=== PATIENT | female | born 1960 | race Caucasian/White ===

== ENCOUNTER 2018-07-19 12:03 | Outpatient (CLI) | payer MEDICARE, MEDICAID, SELFPAY ==
[2018-07-19 12:51] LABS: Abs Immature Grans 0.01 k/cumm (0.0-0.09); Absolute Basophil Count 0.03 k/cumm (0.0-0.2); Absolute Eosinophil Count 0.35 k/cumm (0.0-0.7); Absolute Lymphocyte Count 1.06 k/cumm (1.2-3.4); Absolute Monocyte Count 0.66 k/cumm (0.11-0.7); Absolute Neutrophil Count 4.11 k/cumm (1.2-6.7); Basophils % 0.5; Eosinophils % 5.6; HCT 42.2 % (36.0-46.0); HGB 14.6 g/dL (12.0-15.5); Immature Grans % 0.2; Mean Corp. HGB Concentration 34.6 g/dL (32.0-36.0); Mean Corpuscular Hemoglobin 36.6 pg (27.0-33.0); Mean Corpuscular Volume 105.8 fL (80-95); Mean Platelet Volume 10.1 fL (8.0-11.0); Monocytes % 10.6; Neutrophils % 66.1; Platelet Count 165 x1000/uL (130-400); RBC 3.99 m/cumm (4.00-5.20); RBC Distribution Width 14.2 % (11.7-14.6); White Blood Cell Count 6.22 k/cumm (4.4-10.8)
[2018-07-19 13:24] LABS: ALT 18 U/L (12-78); AST 25 U/L (15-37); Albumin 3.4 g/dL (3.4-5.0); Alkaline Phosphatase 121 U/L (46-116); Anion Gap 8.8 mmol/L (3-11); BUN 9 mg/dL (7-18); Bilirubin, Total 0.6 mg/dL (0.2-1.0); CO2 26.2 mmol/L (21.0-32.0); CREATININE 0.91 mg/dL (0.55-1.02); Calcium 8.8 mg/dL (8.5-10.1); Chloride 101 mmol/L (98-107); Cholesterol 187 mg/dL (50-200); Glucose 111 mg/dL (70-100); HDL Cholesterol 64 mg/dL (40-60); LDL CHOLESTEROL 113 mg/dL (<100); Potassium 3.9 mmol/L (3.5-5.1); Sodium 136 mmol/L (136-145); Total Protein 8.1 g/dL (6.4-8.2); Triglyceride 110 mg/dL (30-150)
[2018-07-20 15:36] LABS: CD3 81 % (62-87); CD4 42 % (35-63); CD8 36 % (10-35)
[2018-07-20 16:15] LABS: HIV-1 RNA Quantification <20 copies/mL (UNDECT)
[2018-07-21 13:41] LABS: TB Interpretation Negative (NEGAT)
== END 2018-07-19 12:04 ==
PROVIDERS: PCP Family Medicine; Visit Provider Nurse Practitioner Family
DX: B20 Human immunodeficiency virus [HIV] disease (principal); E55.9 Vitamin D deficiency, unspecified; Z92.21 Personal history of antineoplastic chemotherapy; Z85.3 Personal history of malignant neoplasm of breast; E78.5 Hyperlipidemia, unspecified; Z79.899 Other long term (current) drug therapy
CPT/HCPCS: 36415; 80053; 80061; 82306; 83721; 87536; 85025; 86359; 86360; 86480

== ENCOUNTER 2019-03-27 10:29 | Outpatient (CLI) | payer MEDICARE, SELFPAY ==
[2019-03-27 11:22] LABS: Abs Immature Grans 0.01 k/cumm (0.0-0.09); Absolute Basophil Count 0.03 k/cumm (0.0-0.2); Absolute Eosinophil Count 0.31 k/cumm (0.0-0.7); Absolute Lymphocyte Count 1.54 k/cumm (1.2-3.4); Absolute Monocyte Count 0.41 k/cumm (0.11-0.7); Absolute Neutrophil Count 3.11 k/cumm (1.2-6.7); Basophils % 0.6; Eosinophils % 5.7; HCT 35.6 % (36.0-46.0); HGB 11.6 g/dL (12.0-15.5); Immature Grans % 0.2; Lymphocytes % 28.5; Mean Corp. HGB Concentration 32.6 g/dL (32.0-36.0); Mean Corpuscular Hemoglobin 35.9 pg (27.0-33.0); Mean Corpuscular Volume 110.2 fL (80-95); Monocytes % 7.6; Neutrophils % 57.4; Platelet Count 186 x1000/uL (130-400); RBC 3.23 m/cumm (4.00-5.20); RBC Distribution Width 13.9 % (11.7-14.6); White Blood Cell Count 5.41 k/cumm (4.4-10.8)
[2019-03-27 11:48] LABS: ALT 22 U/L (12-78); AST 33 U/L (15-37); Albumin 3.3 g/dL (3.4-5.0); Alkaline Phosphatase 106 U/L (46-116); Anion Gap 10.4 mmol/L (3-11); BUN 12 mg/dL (7-18); Bilirubin, Total 0.2 mg/dL (0.2-1.0); CO2 28.6 mmol/L (21.0-32.0); CREATININE 0.78 mg/dL (0.55-1.02); Calcium 8.7 mg/dL (8.5-10.1); Chloride 101 mmol/L (98-107); Glucose 87 mg/dL (70-100); Potassium 4.1 mmol/L (3.5-5.1); Sodium 140 mmol/L (136-145); Total Protein 7.7 g/dL (6.4-8.2)
[2019-04-03 09:00] LABS: HIV-1 RNA Quantification <20 copies/mL (UNDECT)
== END 2019-03-27 10:49 ==
PROVIDERS: PCP Family Medicine; Visit Provider Nurse Practitioner Family
DX: B20 Human immunodeficiency virus [HIV] disease (principal); Z79.899 Other long term (current) drug therapy
CPT/HCPCS: 36415; 80053; 87536; 83036; 85025

== ENCOUNTER 2020-02-22 16:09 | Outpatient (REF) | payer MEDICARE, SELFPAY ==
[2020-02-25 18:57] LABS: SARS-CoV-2 RNA Undetected (Undetected); SARS-CoV-2 Specimen Source Nasopharynx
== END 2020-02-22 16:29 ==
LOC: NCHCN 16:09
PROVIDERS: PCP Family Medicine; Visit Provider Physician Assistant
DX: J06.9 Acute upper respiratory infection, unspecified (principal)
CPT/HCPCS: U0003

== ENCOUNTER → 2020-05-16 04:00 | Outpatient (CLI) | payer MEDICARE, SELFPAY ==
--- NOTE | 2020-05-16 | DI.RAD_ITS ---
EXAM: XR KNEE LT 3V AP,LAT,CUBA CLINICAL HISTORY: LT KNEE JOINT PAIN, M25.562 TECHNIQUE: COMPARISON: CR LEFT KNEE 3 VIEW COMPLETE from 04/11/2018 FINDINGS: Three views were obtained. There is severe narrowing of the medial tibiofemoral cartilaginous joint space with slight medial femoral subluxation on the tibia. There is subchondral sclerosis and flatte uche of the medial femoral condyle and medial tibial plateau. There are prominent marginal osteophyt es involving the medial tibiofemoral joint and the patellofemoral joint. Loose joint body may be pre sent posteriorly. IMPRESSION: Severe DJD medial tibiofemoral joint
== END ==
PROVIDERS: PCP Family Medicine; Visit Provider Nurse Practitioner
DX: M25.562 Pain in left knee (principal); M17.12 Unilateral primary osteoarthritis, left knee; M23.42 Loose body in knee, left knee
CPT/HCPCS: 73562

== ENCOUNTER → 2020-07-01 08:58 | Outpatient (BNVA) | payer MEDICARE, MEDICAID, SELFPAY | PROVIDERS: PCP Family Medicine; Referring Provider Family Medicine; Visit Provider Orthopaedic Surgery | DX: M17.12 Unilateral primary osteoarthritis, left knee (principal); M25.562 Pain in left knee | CPT/HCPCS: 20610; 99201; 99213; J1040 ==

== ENCOUNTER → 2020-08-12 09:11 | Outpatient (BNVA) | payer MEDICARE, MEDICAID, SELFPAY | PROVIDERS: PCP Family Medicine; Referring Provider Family Medicine; Visit Provider Orthopaedic Surgery | DX: M25.562 Pain in left knee (principal); M17.12 Unilateral primary osteoarthritis, left knee; M79.89 Other specified soft tissue disorders; Z98.890 Other specified postprocedural states | CPT/HCPCS: 99214 ==

== ENCOUNTER 2020-10-09 10:15 | Outpatient (CLI) | payer MEDICARE, SELFPAY ==
--- NOTE | 2020-10-09 10:00 | DI.RAD_ITS ---
EXAM: XR ANKLE RT COMPLETE CLINICAL HISTORY: pain, swelling. TECHNIQUE: 2D digital imaging was performed. COMPARISON: CR RIGHT ANKLE COMPLETE from 12/08/2017 FINDINGS: BONES: There are stable post operative changes present. No new fracture or dislocation. The orthoped ic hardware appears stable. JOINTS: The joint spaces are well maintained. No joint effusion is present. SOFT TISSUE: Normal. IMPRESSION: Stable postoperative changes. DATA REPOSITORY: RADIATION DOSE DELIVERED:
== END 2020-10-09 10:35 ==
PROVIDERS: PCP Family Medicine; Referring Provider Family Medicine; Visit Provider Orthopaedic Surgery
DX: M25.571 Pain in right ankle and joints of right foot (principal); T84.84XD Pain due to internal orthopedic prosthetic devices, implants and grafts, subsequent encounter; Z87.81 Personal history of (healed) traumatic fracture
CPT/HCPCS: 99213; 99214; 73610

== ENCOUNTER 2020-10-15 02:09 | Outpatient (CLI) | payer MEDICARE, SELFPAY ==
[2020-10-16 15:22] LABS: SARS-CoV-2 RNA Not Detected (NotDetected); SARS-CoV-2 RNA Source Nasal/Nares
== END 2020-10-15 02:29 ==
PROVIDERS: PCP Nurse Practitioner; Visit Provider Orthopaedic Surgery
DX: Z11.59 Encounter for screening for other viral diseases (principal); Z01.818 Encounter for other preprocedural examination
CPT/HCPCS: U0003

== ENCOUNTER 2020-10-23 02:37 | Outpatient (CLI) | payer MEDICARE, SELFPAY ==
[2020-10-25 16:34] LABS: COVID-19 RT-PCR Result NEGATIVE (Negative)
== END 2020-10-23 02:57 ==
PROVIDERS: PCP Nurse Practitioner; Visit Provider Orthopaedic Surgery
DX: Z11.59 Encounter for screening for other viral diseases (principal); Z01.818 Encounter for other preprocedural examination
CPT/HCPCS: U0003

== ENCOUNTER 2020-10-27 06:16 | Day surgery (SDC) | payer MEDICARE, SELFPAY ==
[2020-10-27] VITALS (7 sets, daily range): BP systolic 104–150; BP diastolic 64–99; PULSE 72–98; RESP 16–23; TEMP 36–36.6; O2SAT 93–97
[2020-10-27] MEDS: Lactated Ringers 1,000 ML 80 ML IV (07:00)
[2020-10-27] MEDS: ceFAZolin 2 GM/50 ML BAG IVPB (08:44)
[2020-10-27] MEDS: Bupivacaine 0.5% Pres-Free 30 ML VIAL (09:15)
--- NOTE | 2020-10-27 09:51 | W.PM.DSUDISC ---
Discharge Plan Disposition Patient Disposition: HOME Condition: Good Discharge Details Attending Provider: Dandy De Oliveira Primary Care Provider: Kamille Koch Home Meds and New Rx's Prescriptions: New ibuprofen 800 mg tablet 800 mg PO TID Qty: 30 RF: 0 hydromorphone [Dilaudid] 4 mg tablet 4 mg PO Q4H PRN (Reason: pain) Qty: 14 RF: 0 Continued acetaminophen [Tylenol Extra Strength] 500 mg tablet 1,500 mg PO DAILY PRNRF: 0 trazodone 100 MG tablet 400 mg PO HS RF: 0 Genvoya 1 EACH tablet 1 tab PO HS RF: 0 Discharge Instructions Additional Instructions: Crutches to walk. May put as much weight on R foot as your pain allows. Discontinue crutches as soon as you can step on walking boot with only mild pain. Wear walking boot until you return in 2 weeks. May remove to shower and in bed to sleep after 3 days. Don't remove the wound dressing. Just pat the dressing dry after showering. We will remove the dressing when you follow up in the office. Try to elevate R ankle on 2-3 pillows as much as possible for the next 48 hours. Always elevate R ankle when sitting. Follow up in 's office in 2 weeks. Take ibuprofen 3 times/day for 10 days to decrease inflammation and swelling. Take dilaudid(hydromorphone) for breakthru pain, if needed. Referrals: Dandy De Oliveira MD [ [facility] STAFF PHYSICIAN] - (f/u in 2 weeks) Equipment/Supplies: Brace and Partial Weight Bearing Crutches Activity:: Activity as Tolerated Remove Dressings/Wound Care:: Do Not Remove Shower/Bathe:: 72 hours Diet:: As Tolerated Discharge Orders Discharge Orders: Discharge Order (Routine); Ordered 10/27/20 Ordered By: Dandy De Oliveira
--- NOTE | 2020-10-27 10:09 | ROE_ITS ---
Date of service: 10/27/20 Time of Service: 08:29 Operative Note Operative Note DATE OF PROCEDURE: 10/27/20 PRE-OP DIAGNOSIS: Painful orthopedic hardware right ankle POST-OP DIAGNOSIS: same PROCEDURE: Removal of orthopedic hardware right ankle SURGEON: Dandy De Oliveira FIREFIGHTER MARINE: Rickey Brody ANESTHESIA: DEL COMPLICATIONS: None Patient was transported to: PACU Patient's condition: stable Indications: Is a 60-year-old white female who has developed pain and swelling in her right lower leg for the last couple of months. She had previous ORIF of a bimalleolar fracture closed by Dr. Reyes in 2017. X-rays suggested that the syndesmotic screw might be loose. Her fracture appears to be healed. The ankle mortise is anatomic without any significant DJD. I thought that the pain may be related to her hardware. I felt since the fracture was healed that it could be safely removed, and hopefully alleviate her pain. Risk complication procedure explained patient detail preop. Procedure Description: Patient taken the operating room on 10/27/2020 she is placed on operating table and a general anesthetic was administered. A roll was placed on the right buttock. Proximal tourniquet was applied to the right thigh. The right foot ankle and lower leg were prepped and draped free in the usual sterile fashion. Incision was made in line with her old scar. The incision was carried directly down to the fibula so that full-thickness skin flaps were developed. We sharply incised the fibrous tissue overlying the plate and screws its entire length. Redundant fibrous tissue was excised. Screw heads were exposed and removed including a lag screw across the fracture and the syndesmotic screw through the plate. After the screws were removed the plate was removed without incident. Hemostasis obtained electrocautery. Wound margins were infiltrated with point 5 to Marcaine solution. The wound was irrigated with Betadine and saline solution. Subcu was approximated with interrupted 2-0 Vicryl sutures. A running subcuticular suture of 3-0 Monocryl was used to approximate the skin edges. This was supplemented with tissue glue. A Mepilex dressing was applied. Blood loss was minimal due to tourniquet use during the procedure. Patient was then placed in a fracture walking brace. Tourniquet was released there is no breakthrough bleeding to the dressings. Patient's anesthesia was reversed all complications she was discharged to recovery room in good condition. Patient was discharged home from the surge unit and fully recovered from her general anesthesia. She is given instructions try to elevate her right ankle. On 1-2 pillows much as possible the next 48 hours. She should elevate her right ankle whenever sitting. She may be weightbearing as tolerated to the walking boot with crutches. She can discontinue the crutches as soon as she can step fully on the fracture brace without pain. She should wear the fracture brace full-time until she returns in 2 weeks for follow-up. After 3 days she may remove the boot to shower and in bed to sleep. She is instructed not to try to remove the Mepilex dressing until she follows up. She is given prescription for inflammation of ibuprofen 8 oh milligrams p.o. 3 times daily for 10 days. She is given prescription for breakthrough pain of Dilaudid 4 mg p.o. every 4 hours as needed. Follow-up with Dr. De Oliveira's office in 2 weeks.
[2020-10-27] MEDS: HYDROmorphone 2 MG TAB 4 MG PO (10:25)
== END 2020-10-27 11:33 | disposition home or self-care (01) ==
PROVIDERS: PCP Nurse Practitioner; Visit Provider Orthopaedic Surgery
PROC: (CPT 20680; principal; 2020-10-27 07:30)
DX: T84.84XA Pain due to internal orthopedic prosthetic devices, implants and grafts, initial encounter (principal); M25.571 Pain in right ankle and joints of right foot; I10 Essential (primary) hypertension; F17.210 Nicotine dependence, cigarettes, uncomplicated
CPT/HCPCS: 20680; J0690; J1885; J2001; J2250; J2405; J2704; J3010

== ENCOUNTER → 2020-11-10 09:29 | Outpatient (CLI) | payer MEDICARE, SELFPAY ==
--- NOTE | 2020-11-10 10:45 | DI.US_ITS ---
EXAM: US LOWER EXTREMITY VENOUS RT CLINICAL HISTORY: Rt leg swelling s/p right ankle hardware removal, M79.89 TECHNIQUE: Right lower extremity venous ultrasound performed using grayscale, color-flow, and spectr al Doppler analysis. COMPARISON: No exams were available for comparison FINDINGS: The right common femoral, femoral and popliteal veins demonstrate normal compressibility, augmentatio n, and color Doppler. The posterior tibial veins are patent. The saphenofemoral junction is unremark able. There is no evidence of a Anguiano cyst. Marked soft tissue edema seen in the calf. IMPRESSION: No DVT. DATA REPOSITORY:
== END ==
PROVIDERS: PCP Nurse Practitioner; Visit Provider Physician Assistant
DX: M79.89 Other specified soft tissue disorders (principal)
CPT/HCPCS: 93971

== ENCOUNTER → 2020-11-17 14:31 | Outpatient (BNVA) | payer MEDICARE, SELFPAY | PROVIDERS: PCP Nurse Practitioner; Referring Provider Nurse Practitioner; Visit Provider Student in an Organized Health Care Education/Training Program | DX: T84.84XD Pain due to internal orthopedic prosthetic devices, implants and grafts, subsequent encounter (principal); M25.571 Pain in right ankle and joints of right foot ==

== ENCOUNTER → 2020-11-24 13:23 | Outpatient (BNVA) | payer MEDICARE, SELFPAY | PROVIDERS: PCP Nurse Practitioner; Referring Provider Nurse Practitioner; Visit Provider Student in an Organized Health Care Education/Training Program | DX: Z47.89 Encounter for other orthopedic aftercare (principal); M25.571 Pain in right ankle and joints of right foot; T84.84XD Pain due to internal orthopedic prosthetic devices, implants and grafts, subsequent encounter; M79.89 Other specified soft tissue disorders ==

== ENCOUNTER → 2020-12-01 14:18 | Outpatient (BNVA) | payer MEDICARE, SELFPAY | PROVIDERS: PCP Nurse Practitioner; Referring Provider Nurse Practitioner; Visit Provider Student in an Organized Health Care Education/Training Program | DX: M25.571 Pain in right ankle and joints of right foot (principal); T84.84XD Pain due to internal orthopedic prosthetic devices, implants and grafts, subsequent encounter; M79.89 Other specified soft tissue disorders; B20 Human immunodeficiency virus [HIV] disease ==

== ENCOUNTER → 2020-12-15 14:36 | Outpatient (CLI) | payer MEDICARE, SELFPAY ==
[2020-12-16 01:24] LABS: COVID-19 RT-PCR UVMMC Result Negative (Negative)
== END ==
PROVIDERS: PCP Nurse Practitioner; Visit Provider Student in an Organized Health Care Education/Training Program
DX: M79.89 Other specified soft tissue disorders (principal); T84.84XA Pain due to internal orthopedic prosthetic devices, implants and grafts, initial encounter; Z11.52 Encounter for screening for COVID-19; Z01.818 Encounter for other preprocedural examination; Z01.812 Encounter for preprocedural laboratory examination; M25.571 Pain in right ankle and joints of right foot; B20 Human immunodeficiency virus [HIV] disease
CPT/HCPCS: 87077; U0003; 73600; 87070; 87075; 87186; 87205

== ENCOUNTER 2020-12-15 15:34 | Outpatient (CLI) | payer MEDICARE, SELFPAY ==
--- NOTE | 2020-12-15 14:00 | DI.RAD_ITS ---
EXAM: XR ANKLE RT 2V CLINICAL HISTORY: painful swollen right ankle incision. TECHNIQUE: 2D digital imaging was performed. COMPARISON: CR XR ANKLE RT COMPLETE from 10/09/2020 FINDINGS: There has been interval removal of the previously described hardware with no remaining metallic densi ty. No viewed fractures nor widening of the mortise. Degenerative changes are noted in the ankle-tibiotalar joint. Subtalar joint appears unremarkable. Inferior calcaneal spur again noted. IMPRESSION: DATA REPOSITORY: RADIATION DOSE DELIVERED:
== END 2020-12-15 15:54 ==
PROVIDERS: PCP Nurse Practitioner; Referring Provider Nurse Practitioner; Visit Provider Physician Assistant
DX: M25.571 Pain in right ankle and joints of right foot (principal); M79.89 Other specified soft tissue disorders; T84.84XA Pain due to internal orthopedic prosthetic devices, implants and grafts, initial encounter; B20 Human immunodeficiency virus [HIV] disease
CPT/HCPCS: 73600

== ENCOUNTER 2020-12-17 01:12 | Outpatient (CLI) | payer MEDICARE, SELFPAY ==
[2020-12-17 11:26] LABS: Abs Immature Grans 0.02 10^3/uL (0.0-0.06); Absolute Basophil Count 0.04 10^3/uL (0.0-0.2); Absolute Eosinophil Count 0.26 10^3/uL (0.0-0.7); Absolute Lymphocyte Count 0.88 10^3/uL (1.2-3.4); Absolute Monocyte Count 0.69 10^3/uL (0.1-0.8); Absolute Neutrophil Count 4.96 10^3/uL (1.2-6.7); Basophils % 0.6; Eosinophils % 3.8; HCT 34.6 % (36.0-46.0); HGB 10.9 g/dL (11.2-15.7); Immature Grans % 0.3; Lymphocytes % 12.8; MCH 29.5 pg (27.0-33.0); MCHC 31.5 % (32.0-36.0); MCV 93.8 fL (80-95); MPV 9.2 fL (8.0-11.0); Monocytes % 10.1; Neutrophils % 72.4; Nucleated RBC 0 %; Platelet Count 209 10^3/uL (130-400); RBC 3.69 10^6/uL (3.93-5.22); RDW 18.2 % (11.7-14.6); RDW-SD 62.3 fL; WBC 6.85 10^3/uL (4.4-10.8)
[2020-12-17 11:35] LABS: Anion Gap 10.2 mmol/L (3-11); BUN 5 mg/dL (7-18); CO2 24.8 mmol/L (21.0-32.0); CREATININE 0.91 mg/dL (0.55-1.02); Calcium 8.6 mg/dL (8.5-10.1); Chloride 97 mmol/L (98-107); Glucose 85 mg/dL (74-106); Potassium 3.5 mmol/L (3.5-5.1); Sodium 132 mmol/L (136-145)
[2020-12-17 11:55] LABS: C-Reactive Protein 2.48 mg/dL (0.0-0.3)
[2020-12-17 12:26] LABS: ESR 55 mm/hr (0-30)
== END 2020-12-17 01:32 ==
PROVIDERS: PCP Nurse Practitioner; Visit Provider Student in an Organized Health Care Education/Training Program
DX: T81.49XA Infection following a procedure, other surgical site, initial encounter (principal); T81.89XA Other complications of procedures, not elsewhere classified, initial encounter
CPT/HCPCS: 80048; 85652; 83036; 85025; 86140

== ENCOUNTER 2020-12-17 14:07 | Inpatient (IN) | payer MEDICARE, SELFPAY ==
[2020-12-17] VITALS (12 sets, daily range): BP systolic 111–151; BP diastolic 69–97; PULSE 71–104; RESP 12–21; TEMP 36.3–36.7; O2SAT 91–98
--- NOTE | 2020-12-17 11:00 | DI.CT_ITS ---
EXAM: CT LOWER EXTREMITY RT W CLINICAL HISTORY: PAIN,SURGICAL WOUND INFECTION,DELAYED HEALING,T81.49XA,T81.89XA. TECHNIQUE: Imaging Protocol: Axial computed tomography images with coronal and sagittal reformatted images were created and reviewed. CONTRAST MATERIAL: Intravenous: Omnipaque 350 Contrast volume:structured data in ml Contrast route:I V - Oral: yes / no COMPARISON: CR XR ANKLE RT COMPLETE from 10/09/2020 CR XR ANKLE RT COMPLETE from 10/09/2020 CR XR ANKLE RT 2V from 12/15/2020 FINDINGS: There is soft tissue edema seen greatest adjacent to the distal fibula. There is a soft tissue wound with packing in place. A fluid collection, suspicious for abscess is visible seen directly adjacent to the distal fibula, beneath the level of the wound which measures nearly 5 cm in length by 1 cm in transverse and AP dimensions. There are lucencies in the distal fibula related to previously noted hardware. The fluid collection lies directly adjacent to screw tracts, particularly the mortise scre w tract. There is no evidence of bony destruction however osteomyelitis cannot be excluded. The ten dons are grossly intact. There is no evidence intramuscular edema or fluid collection. IMPRESSION: Soft tissue wound with subjacent fluid collections, suspicious for abscess. The collection is direct ly adjacent to the distal fibula and screw tracts. No definite bony destruction is seen.. RADIATION DOSE DELIVERED: 397.07mGy.cm Total DLP DATA REPOSITORY: All CT scans at this facility are submitted to the National Radiology Data Registry (NRDR) Dose Index Registry (DIR) with the [employer] [place] [employer] (ACR). RADIATION OPTIMIZATION: All CT scans at this facility use at least one of these dose optimization te chniques: automated exposure control; mA and/or kV adjustment per patient size (includes targeted exa ms where dose is matched to clinical indication); or iterative reconstruction.
[2020-12-17] MEDS: Lactated Ringers 1,000 ML 80 ML IV (13:12)
[2020-12-17] MEDS: ceFAZolin 2 GM/50 ML BAG IVPB (13:35)
[2020-12-17] MEDS: fentaNYL 100 MCG/2 ML VIAL ×2 (14:15→14:30)
[2020-12-17] MEDS: fentaNYL 100 MCG/2 ML VIAL IVP (14:40)
[2020-12-17] MEDS: HYDROmorphone 2 MG/ML VIAL IVP (14:50)
[2020-12-17] MEDS: PIPERACILLIN/TAZO 3.375 GM in Normal Saline 50 ML IVPB ×2 (16:00→22:11)
[2020-12-17] MEDS: Ketorolac 15 MG/ML VIAL IVPB ×2 (16:32→22:10)
[2020-12-17] MEDS: HYDROmorphone 2 MG/ML VIAL 1 MG IVP ×2 (17:32→20:10)
[2020-12-17] MEDS: VANCOMYCIN/WATER (PEG) 1.5 GM/300 ML BAG IVPB (17:33)
[2020-12-17] MEDS: diazePAM 5 MG TAB PO (17:33)
--- NOTE | 2020-12-17 19:12 | ROE_ITS ---
Date of service: 12/17/20 Time of Service: 14:12 Operative Note Operative Note DATE OF PROCEDURE: 12/17/20 PRE-OP DIAGNOSIS: Right Ankle/Lateral Leg Infected Wound POST-OP DIAGNOSIS: same PROCEDURE: Irrigation and Debridement of Left Leg Wound (involving subcutaneous tissue, muscel and bone) with Wound VAC placement SURGEON: Solitario Angel APPLIED ANTHROPOLOGIST: Rickey Brody ANESTHESIA: other (General) ESTIMATED BLOOD LOSS: 10 PATHOLOGY: other (Specimens were sent to lab for microbiology testing) TOURNIQUET TIME: 0 COMPLICATIONS: None Patient was transported to: PACU Patient's condition: stable Indications: Becca is a 60-year-old who underwent hardware removal from the lateral right ankle in early October. Unfortunately, she had significant edema, DVT negative. She continued to have edema and dehiscence of the wound which started superficially and has progressed to become more of a deep wound. She failed conservative treatments on her own at home with difficulties with dressing and also some social difficulties with maintaining elevation and performing basic wound care. She presented to the office 2 days prior with a grossly infected right wound with exposed lateral fibula. Therefore, I recommended proceeding to the operating room for irrigation and debridement and wound VAC placement. She has significant anxiety but with certain stipulations and arrangements, she agreed to proceed to the operating room and stay in the hospital for IV antibiotics and wound VAC placement. I discussed the risk of the procedure to include bleeding, continued infection, need for repeat procedures, need for transfer to tertiary center, need for plastic surgery or other skin closure techniques, damage to nerves and vessels, blood clot. Despite these risks, she elects to proceed. Findings: There was a wound with gross superficial necrosis and purulence. Based on CT scan there is tracking abscess against the fibula so the distal aspect was opened up to expose this tracking abscess. Total wound length was 7 cm. It measured 2 and half centimeters wide and 1/2 cm deep. After debridement there is no tracking. There was exposed periosteum and lateral fibula. A wound VAC was placed with a white sponge against the bone and a black sponge in the soft tissue cavity. Procedure Description: Becca was greeted in the preoperative holding area. Her identity was confirmed the correct side was identified and marked. The consent was reviewed the patient and signed. She was taken back to the operating room placed in the supine position. All bony prominences were well padded. Prophylactic biotics were held until wound cultures were obtained. The right leg was then prepped with Betadine and placed on a bone foam ramp. A timeout was performed for safe surgery. The initial wound was covered in a layer of purulent discharge as well as some necrosis at the more distal extent. Based on the CT scan there was an abscess tracking underneath the incision distally against the fibula. Therefore, I incised this healing soft tissue to expose the deeper surfaces. There is some solid-appearing purulent material. There is still no gross liquid purulence. This was removed. I then probed the deeper surfaces and sent swabs to culture as well as some tissue from the lateral border of the fibula. Antibiotics were administered. I then performed an aggressive debridement with a rongeur and a curette. I removed all necrotic bearing tissue. I also removed all purulence. Unfortunate, this also included a layer that was just coating the lateral fibula. There is no retained suture apparent. I was unable to discover any areas of tracking. The wound was then thoroughly irrigated with 3 L of normal saline. Continue debridement was performed during this time to make sure there is no remnant purulent or necrotic material. There is excellent bleeding from all tissue surfaces. I then placed a wound VAC. A white sponge was cut to fit over the exposed bone and only just the bone. This was placed into the depths of the wound on top of the lateral fibula. I then cut an appropriately sized black sponge to fit on top of the white 1 and fill the remainder of the void of the tissue. Prior to placing this the wound measured 7 x 2-1/2 x 1-1/2 cm. The sponge was applied and adhesive dressing was placed on top followed by the VAC tubing. It was hooked to the machine and noted to have excellent suction. Drains removed and she is transferred back to the hospital stretcher in stable condition. Swabs for anaerobic and aerobic as well as some tissue from the lateral fibula were sent to the lab for microbiology. She will be started on broad-spectrum antibiotics, vancomycin and Zosyn. Will follow cultures and plan for wound VAC change on Tuesday in the OR with MAC anesthetic.
[2020-12-17] MEDS: Acetaminophen 500 MG TAB 1000 MG PO (19:52)
[2020-12-17] MEDS: Normal Saline Flush 10 ML SYR IV ×3 (20:00→22:10)
[2020-12-17] MEDS: traZODone 100 MG TAB 200 MG PO (22:10)
[2020-12-17] MEDS: Gabapentin 300 MG CAP PO (22:11)
[2020-12-18] VITALS (7 sets, daily range): BP systolic 113–162; BP diastolic 63–94; PULSE 77–114; RESP 16–19; TEMP 36.5–37.3; O2SAT 88–94
[2020-12-18] MEDS: Ketorolac 15 MG/ML VIAL IVPB ×4 (03:42→19:57)
[2020-12-18] MEDS: PIPERACILLIN/TAZO 3.375 GM in Normal Saline 50 ML IVPB ×4 (03:43→21:03)
[2020-12-18] MEDS: Normal Saline Flush 10 ML SYR IV ×5 (03:43→19:58)
[2020-12-18] MEDS: diazePAM 5 MG TAB PO ×4 (03:59→19:57)
[2020-12-18] MEDS: HYDROmorphone 2 MG/ML VIAL 1 MG IVP (05:22)
[2020-12-18] MEDS: VANCOMYCIN/WATER (PEG) 1.5 GM/300 ML BAG IVPB ×2 (05:23→18:27)
[2020-12-18 07:27] LABS: ALT 35 U/L (14-59); AST 88 U/L (15-37); Alkaline Phosphatase 108 U/L (46-116); Anion Gap 8.2 mmol/L (3-11); BUN 12 mg/dL (7-18); Bilirubin, Total 1.4 mg/dL (0.2-1.0); C-Reactive Protein 3.65 mg/dL (0.0-0.3); CO2 27.8 mmol/L (21.0-32.0); CREATININE 1.09 mg/dL (0.55-1.02); Calcium 8.1 mg/dL (8.5-10.1); Chloride 97 mmol/L (98-107); Estimated GFR 50.86 (mL/min/1.73m2); Glucose 126 mg/dL (74-106); Potassium 3.7 mmol/L (3.5-5.1); Sodium 133 mmol/L (136-145)
[2020-12-18] MEDS: Pantoprazole 40 MG TABCR PO (07:33)
[2020-12-18] MEDS: HYDROmorphone 2 MG TAB PO ×3 (07:34→19:57)
[2020-12-18] MEDS: Acetaminophen 500 MG TAB 1000 MG PO ×3 (07:34→19:57)
--- NOTE | 2020-12-18 08:15 | RT.EKG_ITS ---
APPROVED REPORT Exam: Resting ECG Patient Location: I HR:75 bpm ECG Measurements Heart Rate 75 AXIS IN 172 P 73 QRSd 99 QRS 0 QT 398 T 53 QTc 446 Conclusion Sinus irregularity.V-rate 57- 91, variation>10% Consider inferior infarct...Q >35mS in II III aVF
--- NOTE | 2020-12-18 08:20 | W.PM.PROGNOT ---
Date of Service Date of service: 12/18/20 Time of Service: 07:46 Assessment and Plan Assessment and plan (1) Surgical wound infection: Status: Acute Assessment and plan: Becca is a 60-year-old who is status post irrigation debridement and wound VAC placement of a right infected surgical wound. She is doing much better this morning. She does have significant anxiety which has limited our ability to treat adequately in the past. She seems to be doing well at this point. I did find her records from her primary care provider. She was on Klonopin for some period of time. Becca reports that her primary stop the Klonopin. However, our records seem to indicate the contrary. Nevertheless, I think a benzodiazepine will help out both the muscle spasms as well as with anxiety and therefore I will start her on scheduled Valium, 5 mg 3 times daily. We need to limit the IV narcotic as we hope to discharge Becca to home. Therefore, I will discontinue IV hydromorphone will result to Tylenol, ibuprofen and oral hydromorphone, in addition to the scheduled Valium. I am awaiting cultures but my suspicion is that this is can be a primary gram-negative lucas infection given the limited amount of purulence. I am awaiting more formal culture results and will narrow down antibiotics at that time. Given that it is soft tissue infection mostly, I think this can be treated with oral antibiotics but I would like some that had good bone penetration just in case there was some initial onset of osteomyelitis. I think a candy quinolone would be able to control most of this, however, does have his issues. I will check an EKG today to make sure she has no QT prolongation. Additionally, we will plan to proceed with wound VAC change tomorrow. This we will do with MAC anesthetic but try to avoid any anesthetic at all so she may discharge to home with home health services for wound VAC changes at home. Likely discharge to home Tuesday evening or Tuesday. Subjective Subjective Interval history since last seen: Becca reports be doing well. She has had some pain but overall has been controlled. She has found that her leg is much smaller in size than it was. She has been keeping elevated overnight. Nursing reports very minimal sanguinous type drainage from the wound VAC. She denies any fevers or chills. Exam Narrative Exam Narrative: Becca sitting up in the hospital bed. She is in no acute distress. Alert and orient x3. Valuation of the right leg shows significant decrease in swelling and size of the right leg. There is notable wrinkles throughout the entire leg. The amount of erythema is significantly decreased from yesterday. However, the distal aspect of the wound and the lateral aspect of the leg and ankle are still erythematous. She is able demonstrate intact dorsiflexion plantarflexion of the right ankle. Sensation intact light touch over the deep and superficial peroneal nerve and tibial nerve. Objective Last Vital Signs Temp 37.3 C 12/18/20 03:40 Pulse 114 H 12/18/20 03:40 Resp 19 12/18/20 03:40 BP 162/94 H 12/18/20 03:40 Pulse Ox 92 12/18/20 04:19 Laboratory Results - last 24 hr 12/18/20 06:42 Sodium 133 L Potassium 3.7 Chloride 97 L Carbon Dioxide 27.8 Anion Gap 8.2 BUN 12 D Creatinine 1.09 H Estimated GFR/1.73 m2 50.86 Glucose 126 H Calcium 8.1 L Total Bilirubin 1.4 H AST 88 H ALT 35 Alkaline Phosphatase 108 C-Reactive Protein 3.65 H Total Protein 8.0 Albumin 3.0 L
--- NOTE | 2020-12-18 13:10 | PDOC.CMIN ---
- If Service Date Differs Date of service: 12/18/20 Time of Service: 16:15 Care Management Initial Assess REASON FOR HOSPITALIZATION:: Right leg wound, deep infection; surgical irrigation and wound debridement PAST MEDICAL HISTORY/PAST SURGICAL HISTORY:: HIV positive, breast cancer, tobacoo use, right ankle fracture, appendectomy, left masectomy, right knee surgery PREVIOUS FUNCTIONAL STATUS/SOCIAL/FAMILY SUPPORTS:: Becca resides in [place] with her significant other, Sheldon. CURRENT FUNCTIONAL STATUS:: Becca is being monitored closely post surgically. She remains on IV ABX with wound vac placement. Per MD, Becca struggles with some baseline anxiety and has reported she will return home as soon as able. She is experiencing significant pain when CM attempts to connect with her. CM continues to follow. ADVANCE DIRECTIVES:: None on file at [facility]. Has patient been provided with info about the portal/API?: Yes Did the patient sign up for the portal?: No CODE STATUS:: Full Code INSURANCE COVERAGE / FINANCIAL ISSUES:: Medicare CURRENT HOME/COMMUNITY SERVICES/EQUIPMENT:: [facility] PRIMARY CARE PHYSICIAN:: Kamille Koch POTENTIAL DISCHARGE NEEDS:: Wound vac coordination and placement. Coordination of dressing change orders through [facility] for nursing support at home, follow up appointments with PCP and Ortho. PATIENT/FAMILY EDUCATION NEEDS:: Review of discharge instructions, discuss Ask Me [employer]. ANTICIPATED BARRIERS TO DISCHARGE:: None identified at this time. TRANSPORTATION:: Via private vehicle with her significant other. PLAN:: Becca continues to be monitored and treated after the irrigation and debridement of her leg wound. Possiblity remains that [facility] IV AB[facility] may need to be coordinated-Becca has MCR only and would likely have co-pays. CM will await MD determination to support discharge planning considerations. Wound vac placed; Ortho office coordinating wound vac for Becca to return home-anticipating it will be placed in the OR tomorrow per MD. CM notified [facility] of anticipated orders for [facility] services for wound vac monitoring and dressing changes. Becca will follow up with her PCP and plan of care as prescribed. She will transport via private vehicle with her significant other.
[2020-12-18] MEDS: Gabapentin 300 MG CAP PO (21:03)
[2020-12-18] MEDS: traZODone 100 MG TAB 200 MG PO (21:03)
[2020-12-19 03:01] VITALS: BP 148/94; PULSE 81; RESP 18; TEMP 36.3; O2SAT 93
[2020-12-19] MEDS: PIPERACILLIN/TAZO 3.375 GM in Normal Saline 50 ML IVPB ×2 (03:49→10:05)
[2020-12-19] MEDS: VANCOMYCIN/WATER (PEG) 1.5 GM/300 ML BAG IVPB (05:05)
[2020-12-19] MEDS: Acetaminophen 500 MG TAB 1000 MG PO (06:44)
[2020-12-19] MEDS: diazePAM 5 MG TAB PO (06:44)
[2020-12-19] MEDS: HYDROmorphone 2 MG TAB PO ×2 (06:44→10:04)
[2020-12-19] MEDS: Normal Saline Flush 10 ML SYR IV ×2 (06:45→10:05)
[2020-12-19] MEDS: Ketorolac 15 MG/ML VIAL IVPB (06:45)
[2020-12-19 07:00] VITALS: BP 135/88; PULSE 62; RESP 18; TEMP 35.7; O2SAT 91
[2020-12-19 07:40] LABS: C-Reactive Protein 4.63 mg/dL (0.0-0.3)
[2020-12-19 09:22] LABS: Prealbumin 12 mg/dL (20-40)
--- NOTE | 2020-12-19 10:37 | W.NUTRFU ---
Date of service: 12/19/20 Time of Service: 10:37 Nutritional Follow up NOTE: 60 year old obese female s/p surgical wound infection, post debridement. Diet advanced to regular with excellent intake. NPO@ breakfast today. Meeting nutrient and fluid needs at this time. Not considered at nutritional risk. Will continue to follow. Time Spent in Nutritional Counseling and Treatment: 0
[2020-12-19 11:15] VITALS: BP 127/86; PULSE 64; RESP 18; TEMP 36.7; O2SAT 93
[2020-12-19] MEDS: Lidocaine 1% Multi-Dose 50 ML VIAL (12:00)
--- NOTE | 2020-12-19 12:10 | W.PM.DS.N ---
Date of service: 12/19/20 Time of Service: 12:11 DS: Diagnosis Discharge Diagnosis (1) Surgical wound infection: Status: Acute Discharge Plan Disposition Patient Disposition: HOME W/HOME HEALTH SERVICE Condition: Good Discharge Details Reason For Visit: RIGHT LEG WOUND AND DEEP INFECTION Admit Date/Time: 12/17/20 14:07 Admit Provider: Solitario Angel Attending Provider: Solitario Angel Primary Care Provider: Kamille Koch Hospital Course Hospital Course: Becca was admitted to the hospital for management of her right leg wound. She underwent surgery on 12/17/19. She had an I&D as well as wound vac application. She tolerated this well. She was able to handle a wound vac change on the floor on 12/19/20. Unfortunately, she has known issues with anxiety and her anxiety increased on 12/19/20 where she demanded to leave AMA. I was able to change the dressing on the floor and help facilitate safe discharge to home with home health services. Home Meds and New Rx's Prescriptions: New hydromorphone 2 mg tablet 2 mg PO BID Qty: 14 RF: 0 gabapentin 300 mg capsule 300 mg PO QHS Qty: 30 RF: 0 metronidazole [Flagyl] 500 mg tablet 500 mg PO TID Qty: 90 RF: 0 sulfamethoxazole-trimethoprim [Bactrim DS] 800-160 mg tablet 1 tab PO BID Qty: 60 RF: 0 Continued acetaminophen 500 mg capsule 500 mg PO Q6H PRN (Reason: pain) Qty: 30 RF: 0 ibuprofen 800 mg tablet 800 mg PO TID Qty: 30 RF: 0 gabapentin 300 mg capsule 300 mg PO QHS Qty: 3 RF: 0 Genvoya 1 EACH tablet 1 tab PO HS RF: 0 trazodone 100 mg Tablet 200 mg PO HS RF: 0 Discontinued tramadol 50 mg tablet 50 mg PO BID PRN (Reason: pain) Qty: 6 RF: 0 ciprofloxacin HCl 500 mg tablet 500 mg PO BID Qty: 6 RF: 0 Discharge Instructions Additional Instructions: Activity: You may weight bear as tolerated, using crutches or walker for support. You should keep the leg elevated AT ALL TIMES. You may wiggle your toes and move your hip and knee. Dressings: You should keep the WOUND VAC in place. You will need to make sure that you keep it plugged up as much as possible. The VAC machine must stay on at all times to apply suction to the wound. You have a large box of supplies sent home with you. This will be used by the home health nurses to perform dressing changes three times per week. The first dressing change should occur on Tuesday. Medications: - You should take Tylenol and Ibuprofen around the clock for baseline pain. - You have been prescribed a stronger narcotic, Hydromorphone, for breakthrough pain or pain with dressing changes, up to two times a day. - You have Gabapentin to take at night for anxiety and pain. - You have two antibiotics: Bactrim and Flagyl. Do NOT stop these until talking with Dr. Angel. Follow-up: 3 weeks 1. Encounter Date and Reason I certify that BECCA LENZ was seen by Solitario Angel MD on 12/19/20 and that I had a [id number] encounter with this patient that meets the physician face to face encounter requirements. 2. Clinical Findings Supporting Skilled Need and Homebound Status I certify that home health services are medically necessary, include either intermittent custodial and/or physical/speech therapy, and that this patient is homebound in that absences from the home require considerable and taxing effort and are infrequent or of short duration, or are attributable to the need to receive medical care. [X] (a) Attached documentation from encounter provides clinical findings supporting skilled need and homebound status (including what assistance patient requires to leave the home). The encounter with the patient was in whole, or in part, for the following medical condition, which is the primary reason for home health care: RIGHT LEG WOUND AND DEEP INFECTION Correction: Nursing is needed to facilitate wound vac dressing changes including the proper cleaning of the wound and application of the wound vac sponge with measurements at time of the dressing change. Dressing Information: - Lidocaine 1%, approximately 10cc, may be injected onto the foam directly or through the tubing to help decrease pain. The sponge may also be soaked with normal saline to facilitate removal. - Please change the wound vac three times per week. There is a small amount of exposed fibula, more at the distal aspect of the wound, which will need to be covered with a white sponge. The remainder of the wound may be filled with a black sponge. Wound VAC set to 125mmHg. - Please perform wet-to-dry dressing changes if there is an issue with the wound VAC. Physical Therapy: Speech Therapy: Homebound: Becca is unable to leave her home unassisted due to an open wound of the right leg. 3. Certification and Authentication I certify that I composed the above information based on my clinical judgement relating to this patient's medical condition and, if applicable, clinical findings communicated to me by the NPP or inpatient physician who performed the Home Health Referral. All further orders will be obtained through Dr. Angel Referrals: Solitario Angel MD [ [facility] STAFF PHYSICIAN] - Activity:: Activity as Tolerated Equipment/Supplies:: Crutches Diet:: As Tolerated Discharge Orders Discharge Orders: Discharge Order (Routine); Ordered 12/19/20 Ordered By: Solitario Angel DS: Summary Time Spent with Patient providing and/or coordinating discharge services: Less than 30 minutes Status at Discharge Functional status at discharge: independent ambulation Overall status at discharge: patient is progressing back to baseline Mental Status: other (very anxious with illogical thought) Speech and Movement: speech and movement normal Mood: congruent mood Affect: normal affect Exam Psych Speech and Movement: speech and movement normal Mood: congruent mood Affect: normal affect DS: Data Vitals/I&O Vitals and I&O: Vital Signs Temperature 36.7 C 12/19/20 11:15 Temperature Source Tympanic 12/19/20 11:15 Pulse 64 12/19/20 11:15 Pulse Rhythm Regular 12/19/20 09:00 Respiratory Rate 18 12/19/20 11:15 Respiratory Effort Non-Labored 12/19/20 09:00 Respiratory Depth Normal 12/19/20 09:00 Respiratory Pattern Normal 12/19/20 09:00 Blood Pressure 127/86 12/19/20 11:15 Pulse Oximetry 93 12/19/20 11:15 Respiratory End-tidal CO2 32 12/17/20 15:15 Oxygen Delivery Method Room Air 12/19/20 11:15 Oxygen Flow Rate 0 12/19/20 11:15 Pain Level 6 12/19/20 10:04 Comment 12/18/20 03:40 Intake & Output 12/18/20 12/19/20 12/19/20 23:59 11:59 23:59 Intake Total 1040 / 1440 50 / 50 Balance 1040 / 1440 50 / 50 Intake: IV 410 / 810 50 / 50 Oral 630 / 630 Other: Urine Color Yellow Yellow Urine Appearance Clear Clear Urine Odor Normal Normal Comment Pt voided in the toliet independently. Stool Size Moderate Stool Characteristics Soft Voiding Methods Toilet Toilet Data Completed and Pending Labs on day of discharge: Labs from last 24 hours 12/19/20 12/19/20 12/18/20 06:40 05:30 06:42 C-Reactive Protein 4.63 H Prealbumin 12 L Vancomycin Trough Cancelled 12/17/20 13:50 Leg - Right Anaerobic Culture - Pending Preliminary micro results at discharge 12/17/20 13:50 Surgical Culture - Preliminary Leg - Right Streptococcus Agalactiae(Gp B) Staphylococcus Aureus Gram Negative Jose Miguel 12/17/20 13:50 Surgical Culture - Preliminary Leg - Right Streptococcus Agalactiae(Gp B) Gram Positive Negra 12/17/20 13:50 Anaerobic Culture - Pending Leg - Right PFSH Medical History HIV positive Hx of breast cancer 2007 Tobacco abuse Surgical History Fracture, Open Treatment (09/09/17) RIGHT ANKLE/DR. QURESHI Hx of appendectomy Hx of left mastectomy Hx of right knee surgery Social History Smoking/Tobacco Use Status: Former Tobacco Use Smoking risk assessment performed?: Yes Alcohol Intake: current Alcohol Intake frequency: a few times a week Alcohol type: hard liquor Drug use: Never Substance use type: marijuana Current gender identity: female Do you feel safe at home: Yes Do you feel safe in your relationship?: Yes
--- NOTE | 2020-12-19 16:09 | CHAPLAIN ---
Becca was in bed when I visited this morning. She told me she has received great care and that the staff attending to her have been friendly and cheerful and that has been very helpful to here. She shared some of her personal history about growing up in the muslim ([employer]) and then attending Gnosticism churches when she lived in [place]. She said she prays, but she's not sure who I pray to, so we talked about that. 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
== END 2020-12-19 12:35 | disposition home health service (06) | DRG 857 ==
PROVIDERS: Admitting Provider Student in an Organized Health Care Education/Training Program; PCP Nurse Practitioner; Visit Provider Student in an Organized Health Care Education/Training Program
PROC: 0QBJ0ZZ Excision of Right Fibula, Open Approach (ICD-10-PCS; CPT 11044; principal; 2020-12-17 14:45)
DX: T81.49XA Infection following a procedure, other surgical site, initial encounter (principal); B20 Human immunodeficiency virus [HIV] disease; I10 Essential (primary) hypertension; F41.9 Anxiety disorder, unspecified; F32.9 Major depressive disorder, single episode, unspecified; F17.210 Nicotine dependence, cigarettes, uncomplicated
CPT/HCPCS: 11044; 36415; 80053; 87077; NC; 73701; 80202; 84134; 86140; 87070; 87075; 87186; 87205; 93005; 93010; J0690; J1885; J2001; J2250; J2543; J2704; J3010

== ENCOUNTER → 2021-01-16 11:26 | Outpatient (BNVA) | payer MEDICARE, SELFPAY | PROVIDERS: PCP Nurse Practitioner; Referring Provider Nurse Practitioner; Visit Provider Student in an Organized Health Care Education/Training Program | DX: T81.89XD Other complications of procedures, not elsewhere classified, subsequent encounter (principal); Z98.890 Other specified postprocedural states | CPT/HCPCS: 99213 ==

== ENCOUNTER 2021-03-23 09:25 | Emergency (ER) | payer MEDICARE, SELFPAY ==
[2021-03-23] VITALS (67 sets, daily range): BP systolic 65–117; BP diastolic 31–75; PULSE 91–125; RESP 4–29; TEMP 36.5; O2SAT 93–100
--- NOTE | 2021-03-23 09:30 | DI.CT_ITS ---
Exam(s) CT HEAD WO EXAM: CT HEAD WO CLINICAL HISTORY: ams. TECHNIQUE: Imaging Protocol: Axial computed tomography images with coronal and sagittal reformatted images were created and reviewed COMPARISON: No exams were available for comparison FINDINGS: The examination is limited due to patient motion artifact. Ventricles and Extra axial spaces: Normal in size and morphology for the patient's age. Hemorrhage: None. Cerebral parenchyma: No acute territorial infarct. There are areas of decreased attenuation in the w priscila matter likely reflecting small vessel ischemic disease. Midline shift: None. Brainstem/Cerebellum: Normal. Calvarium: Normal. Visualized Paranasal sinuses/Mastoids: Clear. Soft Tissues: Unremarkable. IMPRESSION: 1. No acute intracranial process. 2. Results of this exam have been verbally communicated with provider. RADIATION DOSE DELIVERED: 925.32mGy.cm Total DLP DATA REPOSITORY: All CT scans at this facility are submitted to the National Radiology Data Registry (NRDR) Dose Index Registry (DIR) with the [employer] ([employer]). RADIATION OPTIMIZATION: All CT scans at this facility use at least one of these dose optimization te chniques: automated exposure control; mA and/or kV adjustment per patient size (includes targeted exa ms where dose is matched to clinical indication); or iterative reconstruction.
--- NOTE | 2021-03-23 09:45 | RT.EKG_ITS ---
APPROVED REPORT Exam: Resting ECG Patient Location: E HR:105 bpm ECG Measurements Heart Rate 105 AXIS AZ 173 P 148 QRSd 98 QRS -12 QT 339 T 132 QTc 448 Conclusion Sinus or ectopic atrial tachycardia...P axis (-45,135), rate> 99 Probable left atrial enlargement...P >50mS, <-0.10mV V1 Low voltage, extremity leads...all extremity leads <0.5mV sinus rhythm at 105, low voltage, normal axis, no STEMI, nondiagnostic EKG
[2021-03-23 09:46] LABS: Abs Immature Grans 0.03 10^3/uL (0.0-0.06); Absolute Basophil Count 0.01 10^3/uL (0.0-0.2); Absolute Eosinophil Count 0.01 10^3/uL (0.0-0.7); Absolute Lymphocyte Count 0.37 10^3/uL (1.2-3.4); Absolute Monocyte Count 0.48 10^3/uL (0.1-0.8); Absolute Neutrophil Count 5.68 10^3/uL (1.2-6.7); Basophils % 0.2; Eosinophils % 0.2; HCT 33.7 % (36.0-46.0); HGB 10.7 g/dL (11.2-15.7); Immature Grans % 0.5; Lymphocytes % 5.6; MCH 31.9 pg (27.0-33.0); MCHC 31.8 % (32.0-36.0); MCV 100.6 fL (80-95); MPV 9.9 fL (8.0-11.0); Monocytes % 7.3; Neutrophils % 86.2; Nucleated RBC 0 %; Platelet Count 167 10^3/uL (130-400); RBC 3.35 10^6/uL (3.93-5.22); RDW 20.6 % (11.7-14.6); RDW-SD 72.7 fL; WBC 6.58 10^3/uL (4.4-10.8)
[2021-03-23 09:50] LABS: Ammonia 27 umol/L (11-32)
[2021-03-23] MEDS: Normal Saline 1,000 ML 1000 ML IV ×2 (09:54→12:24)
[2021-03-23 10:01] LABS: Source Nasal/Nares
[2021-03-23 10:08] LABS: Albumin 2.6 g/dL (3.4-5.0); Alkaline Phosphatase 201 U/L (46-116); BUN 52 mg/dL (7-18); Bilirubin, Total 9.4 mg/dL (0.2-1.0); Calcium 8.9 mg/dL (8.5-10.1); Chloride 104 mmol/L (98-107); Estimated GFR 6.46 (mL/min/1.73m2); Magnesium 2.4 mg/dL (1.8-2.4); Sodium 143 mmol/L (136-145)
[2021-03-23 10:09] LABS: Prothrombin Time 38.6 sec (9.3-11.0)
[2021-03-23] MEDS: Dextrose 50%-Water 25 GM/50 ML SYR (10:15)
--- NOTE | 2021-03-23 10:15 | DI.RAD_ITS ---
Exam(s) XR PORTABLE CHEST AP EXAM: XR PORTABLE CHEST AP CLINICAL HISTORY: cough, AMS TECHNIQUE: 2D digital imaging was performed. COMPARISON: No exams were available for comparison FINDINGS: MEDIASTINUM: Normal. HEART: Normal. PULMONARY VASCULATURE: Normal. LUNGS: Clear. PLEURAL SPACE: No pleural effusion or pneumothorax. BONE:Within normal limits for the patient's age. OTHER FINDINGS:There are surgical clips overlying the left chest wall and in the left axilla. IMPRESSION: No acute pulmonary findings. DATA REPOSITORY: RADIATION DOSE DELIVERED:
[2021-03-23 10:16] LABS: Troponin I 0.23 ng/mL (<0.06)
[2021-03-23 10:17] LABS: Anisocytosis 2+; CREATININE 6.5 mg/dL (0.55-1.02); Diff Comment Diff Reviewed; Glucose 44 mg/dL (74-106)
[2021-03-23 10:22] LABS: BE (Venous) 0 mmol/L (-2-3); HCO3 (Venous) 25 mmol/L (23-28); O2 Sat (Venous) 59 %; TCO2 (Venous) 23 mmol/L (24-29); pCO2 (Venous) 41 mmHg (41-51); pH (Venous) 7.39 (7.31-7.41); pO2 (Venous) 35 mmHg
--- NOTE | 2021-03-23 10:25 | W.ED.GENAD ---
Discharge Plan Discharge Details Chief Complaint: AMS/LOC Primary Care Provider: Kamille Koch ED Provider: Jailyn Connell Home Meds and New Rx's Prescriptions: No Action acetaminophen 500 mg capsule 500 mg PO Q6H PRN (Reason: pain) Qty: 30 RF: 0 ibuprofen 800 mg tablet 800 mg PO TID Qty: 30 RF: 0 gabapentin 300 mg capsule 300 mg PO QHS Qty: 30 RF: 0 metronidazole [Flagyl] 500 mg tablet 500 mg PO TID Qty: 90 RF: 0 sulfamethoxazole-trimethoprim [Bactrim DS] 800-160 mg tablet 1 tab PO BID Qty: 60 RF: 0 gabapentin 300 mg capsule 300 mg PO QHS Qty: 3 RF: 0 hydromorphone 2 mg tablet 2 mg PO ONCE MDD 2 mg PRN (Reason: pain) Qty: 3 RF: 0 Genvoya 1 EACH tablet 1 tab PO HS RF: 0 trazodone 100 mg Tablet 200 mg PO HS RF: 0 Discharge Data Discharge Date/Time-TO BE ENTERED AT DEPARTURE: 03/23/21 14:50 Medical Decision Making Becca Bond is a 51-year-old man with a history of HIV, alcoholism sending to emergency department with new onset altered mental status, jaundice. On exam patient is alert but altered. Moving all extremities. She is jaundiced. [id number] bedside ultrasound shows IVC is collapsible, no ascites, no pericardial effusion. Labs resulted with severely elevated T bili, elevated AST/ALT, creatinine 6.5 with most recent 12/11 normal. Concern for likely hepatorenal syndrome, possible sepsis, unclear source of possible bacterial infection at this time although patient is noted to be coughing intermittently, possible acute intracranial etiology, however this is less likely given significant derangement of metabolic labs. Plan for chest x-ray, DuoNeb, CT head, IV fluid hydration, telemetry, IV abx, will continue to monitor. Contacted [facility] 10:26, Pt presentation and condition discussed, transfer center states unsure if they have capacity for critical patients, awaiting call back 10:49 attempted to call Pt's sister, Ely, no answer. I call Pt's partner of 14 years, Sheldon, discussed concern for hepatorenal syndrome, likely poor prognosis. He verbalizes understanding. All questions answered. 10:59 contacted [facility] transfer center 11:11, callback from [facility] with at [facility] as no capacity at [facility], accepted by Dr. Rosenthal after patient full presentation and results discussed, pending head CT. 11:20, callback from [facility], no capacity 12:20 Pt now hypotensive despite fluids, levophed at 10mcg/min. increasing to 20. Otherwise no change in Pt's clinical exam. Requested [facility] for transfer. 12:41 soft restraint order for pulling arm during iv placement 12:52 repeat ultrasound shows IVC collapsibility with respiration, plan for continued IV fluid. Blood pressure improving on Levophed. [facility] en route, planned arrival time 1305. 13:05: Notified of delay from start, arrival time now anticipated to be 1335. Patient mental status continues to be unchanged. She arouses easily to voice, she is protecting her airway, gag is intact, she is able to speak 1 word sentences. She does become somewhat agitated when significant movement is needed from her from her care team. Blood pressure was responsive to Levophed, patient currently with MAP 72 with Levophed at 30 mics per minute. Vasopressin is ordered, will add on if patient exhibits further hypotension. Patient is also continuing to receive IV fluid hydration. Vasopressin initiated for MAP <65 [facility] with [facility] performed FSBG and ABG, both resulted within normal. 1418: Pt left ED with medics for transfer Medical Records Medical records reviewed: Yes I reviewed the patient's medical records. Imaging Data Radiologic Study: Attestation: I personally reviewed and interpreted this imaging study as follows: Radiologist's impression: EXAM: CT HEAD WO CLINICAL HISTORY: ams. TECHNIQUE: Imaging Protocol: Axial computed tomography images with coronal and sagittal reformatted images were created and reviewed COMPARISON: No exams were available for comparison FINDINGS: The examination is limited due to patient motion artifact. Ventricles and Extra axial spaces: Normal in size and morphology for the patient's age. Hemorrhage: None. Cerebral parenchyma: No acute territorial infarct. There are areas of decreased attenuation in the white matter likely reflecting small vessel ischemic disease. Midline shift: None. Brainstem/Cerebellum: Normal. Calvarium: Normal. Visualized Paranasal sinuses/Mastoids: Clear. Soft Tissues: Unremarkable. IMPRESSION: 1. No acute intracranial process. 2. Results of this exam have been verbally communicated with provider. EXAM: XR PORTABLE CHEST AP CLINICAL HISTORY: cough, AMS TECHNIQUE: 2D digital imaging was performed. COMPARISON: No exams were available for comparison FINDINGS: MEDIASTINUM: Normal. HEART: Normal. PULMONARY VASCULATURE: Normal. LUNGS: Clear. PLEURAL SPACE: No pleural effusion or pneumothorax. BONE:Within normal limits for the patient's age. OTHER FINDINGS:There are surgical clips overlying the left chest wall and in the left axilla. IMPRESSION: No acute pulmonary findings. Lab Data Lab results reviewed: Yes I reviewed the patient's lab results. Labs: 03/23/21 10:08 Blood Blood Culture - Pending 03/23/21 09:50 Blood Blood Culture - Pending Laboratory Tests Range/Units 03/23/21 03/23/21 03/23/21 09:35 09:35 09:35 WBC (4.4-10.8) 10^3/uL 6.58 RBC (3.93-5.22) 10^6/uL 3.35 L Hgb (11.2-15.7) g/dL 10.7 L Hct (36.0-46.0) % 33.7 L MCV (80-95) fL 100.6 H MCH (27.0-33.0) pg 31.9 MCHC (32.0-36.0) % 31.8 L RDW (11.7-14.6) % 20.6 H Plt Count (130-400) 10^3/uL 167 MPV (8.0-11.0) fL 9.9 Immature Gran % 0.5 Neutrophils % 86.2 Lymphocytes % 5.6 Monocytes % 7.3 Eosinophils % 0.2 Basophils % 0.2 Nucleated RBC % % 0 Absolute Neutrophils (1.2-6.7) 10^3/uL 5.68 Absolute Lymphocytes (1.2-3.4) 10^3/uL 0.37 L Absolute Monocytes (0.1-0.8) 10^3/uL 0.48 Absolute Eosinophils (0.0-0.7) 10^3/uL 0.01 Absolute Basophils (0.0-0.2) 10^3/uL 0.01 RBC Morphology See below Anisocytosis 2+ PT (9.3-11.0) sec INR (0.9-1.1) VBG pH (7.31-7.41) VBG pCO2 (41-51) mmHg VBG pO2 mmHg VBG HCO3 (23-28) mmol/L VBG Total CO2 (24-29) mmol/L VBG O2 Saturation % VBG Base Excess (-2-3) mmol/L VBG Lactate (0.6-1.4) mmol/L Sodium (136-145) mmol/L 143 Potassium (3.5-5.1) mmol/L 5.0 Chloride (98-107) mmol/L 104 Carbon Dioxide (21.0-32.0) mmol/L 24.0 Anion Gap (3-11) mmol/L 15.0 H BUN (7-18) mg/dL 52 H Creatinine (0.55-1.02) mg/dL 6.5 H* Estimated GFR/1.73 m2 (mL/min/1.73m2) 6.46 Glucose (74-106) mg/dL 44 L* Calcium (8.5-10.1) mg/dL 8.9 Magnesium (1.8-2.4) mg/dL 2.4 Total Bilirubin (0.2-1.0) mg/dL 9.4 H Conjugated Bilirubin (0.0-0.2) mg/dL 7.9 H AST (15-37) U/L 2844 H ALT (14-59) U/L 1330 H Alkaline Phosphatase (46-116) U/L 201 H Ammonia (11-32) umol/L 27 Creatine Kinase (26-192) U/L Troponin I (<0.06) ng/mL 0.23 H* NT-Pro-B Natriuret Pep (<300) pg/mL Total Protein (6.4-8.2) g/dL 7.0 Albumin (3.4-5.0) g/dL 2.6 L TSH (0.36-3.74) uIU/mL Urine Color (Yellow) Urine Clarity (Clear) Urine pH (5-8) Ur Specific [place] (1.005-1.025) Urine Protein (Negative) mg/dL Urine Ketones (Negative) mg/dL Urine Blood (Negative) Urine Nitrite (Negative) Urine Bilirubin (Negative) Urine Urobilinogen (Up TO 0.2) EU/dL Ur Leukocyte Esterase (Negative) Urine RBC Urine WBC Ur Epithelial Cells Urine Crystals Urine Bacteria Urine Casts Urine Mucus Urine Other Ur Culture Indicated? Urine Glucose (Negative) mg/dL Urine Opiates Screen (Negative) Urine Methadone Screen (Negative) Acetaminophen (10-30) ug/mL Ur Barbiturates Screen (Negative) Ur Tricyclics Screen (Negative) Ur Amphetamines Screen (Negative) U Benzodiazepines Scrn (Negative) Urine Cocaine Screen (Negative) Ur THC Screen (Negative) Ethyl Alcohol (<3) mg/dL COVID-19 Source SARS-CoV-2 (PCR) (Negative) Influenza Type A (PCR) (Negative) Influenza Type B (PCR) (Negative) RSV (PCR) (Negative) Range/Units 03/23/21 03/23/21 03/23/21 09:35 09:35 09:47 WBC (4.4-10.8) 10^3/uL RBC (3.93-5.22) 10^6/uL Hgb (11.2-15.7) g/dL Hct (36.0-46.0) % MCV (80-95) fL MCH (27.0-33.0) pg MCHC (32.0-36.0) % RDW (11.7-14.6) % Plt Count (130-400) 10^3/uL MPV (8.0-11.0) fL Immature Gran % Neutrophils % Lymphocytes % Monocytes % Eosinophils % Basophils % Nucleated RBC % % Absolute Neutrophils (1.2-6.7) 10^3/uL Absolute Lymphocytes (1.2-3.4) 10^3/uL Absolute Monocytes (0.1-0.8) 10^3/uL Absolute Eosinophils (0.0-0.7) 10^3/uL Absolute Basophils (0.0-0.2) 10^3/uL RBC Morphology Anisocytosis PT (9.3-11.0) sec 38.6 H INR (0.9-1.1) 4.0 H VBG pH (7.31-7.41) VBG pCO2 (41-51) mmHg VBG pO2 mmHg VBG HCO3 (23-28) mmol/L VBG Total CO2 (24-29) mmol/L VBG O2 Saturation % VBG Base Excess (-2-3) mmol/L VBG Lactate (0.6-1.4) mmol/L Sodium (136-145) mmol/L Potassium (3.5-5.1) mmol/L Chloride (98-107) mmol/L Carbon Dioxide (21.0-32.0) mmol/L Anion Gap (3-11) mmol/L BUN (7-18) mg/dL Creatinine (0.55-1.02) mg/dL Estimated GFR/1.73 m2 (mL/min/1.73m2) Glucose (74-106) mg/dL Calcium (8.5-10.1) mg/dL Magnesium (1.8-2.4) mg/dL Total Bilirubin (0.2-1.0) mg/dL Conjugated Bilirubin (0.0-0.2) mg/dL AST (15-37) U/L ALT (14-59) U/L Alkaline Phosphatase (46-116) U/L Ammonia (11-32) umol/L Creatine Kinase (26-192) U/L Troponin I (<0.06) ng/mL NT-Pro-B Natriuret Pep (<300) pg/mL Total Protein (6.4-8.2) g/dL Albumin (3.4-5.0) g/dL TSH (0.36-3.74) uIU/mL Urine Color (Yellow) Urine Clarity (Clear) Urine pH (5-8) Ur Specific [place] (1.005-1.025) Urine Protein (Negative) mg/dL Urine Ketones (Negative) mg/dL Urine Blood (Negative) Urine Nitrite (Negative) Urine Bilirubin (Negative) Urine Urobilinogen (Up TO 0.2) EU/dL Ur Leukocyte Esterase (Negative) Urine RBC Urine WBC Ur Epithelial Cells Urine Crystals Urine Bacteria Urine Casts Urine Mucus Urine Other Ur Culture Indicated? Urine Glucose (Negative) mg/dL Urine Opiates Screen (Negative) Urine Methadone Screen (Negative) Acetaminophen (10-30) ug/mL 3 Ur Barbiturates Screen (Negative) Ur Tricyclics Screen (Negative) Ur Amphetamines Screen (Negative) U Benzodiazepines Scrn (Negative) Urine Cocaine Screen (Negative) Ur THC Screen (Negative) Ethyl Alcohol (<3) mg/dL COVID-19 Source Nasal/nares SARS-CoV-2 (PCR) (Negative) Negative Influenza Type A (PCR) (Negative) Negative Influenza Type B (PCR) (Negative) Negative RSV (PCR) (Negative) Negative Range/Units 03/23/21 03/23/21 03/23/21 10:08 10:08 10:08 WBC (4.4-10.8) 10^3/uL RBC (3.93-5.22) 10^6/uL Hgb (11.2-15.7) g/dL Hct (36.0-46.0) % MCV (80-95) fL MCH (27.0-33.0) pg MCHC (32.0-36.0) % RDW (11.7-14.6) % Plt Count (130-400) 10^3/uL MPV (8.0-11.0) fL Immature Gran % Neutrophils % Lymphocytes % Monocytes % Eosinophils % Basophils % Nucleated RBC % % Absolute Neutrophils (1.2-6.7) 10^3/uL Absolute Lymphocytes (1.2-3.4) 10^3/uL Absolute Monocytes (0.1-0.8) 10^3/uL Absolute Eosinophils (0.0-0.7) 10^3/uL Absolute Basophils (0.0-0.2) 10^3/uL RBC Morphology Anisocytosis PT (9.3-11.0) sec INR (0.9-1.1) VBG pH (7.31-7.41) 7.39 VBG pCO2 (41-51) mmHg 41 VBG pO2 mmHg 35 VBG HCO3 (23-28) mmol/L 25 VBG Total CO2 (24-29) mmol/L 23 L VBG O2 Saturation % 59 VBG Base Excess (-2-3) mmol/L 0 VBG Lactate (0.6-1.4) mmol/L 4.0 H* Sodium (136-145) mmol/L Potassium (3.5-5.1) mmol/L Chloride (98-107) mmol/L Carbon Dioxide (21.0-32.0) mmol/L Anion Gap (3-11) mmol/L BUN (7-18) mg/dL Creatinine (0.55-1.02) mg/dL Estimated GFR/1.73 m2 (mL/min/1.73m2) Glucose (74-106) mg/dL Calcium (8.5-10.1) mg/dL Magnesium (1.8-2.4) mg/dL Total Bilirubin (0.2-1.0) mg/dL Conjugated Bilirubin (0.0-0.2) mg/dL AST (15-37) U/L ALT (14-59) U/L Alkaline Phosphatase (46-116) U/L Ammonia (11-32) umol/L Creatine Kinase (26-192) U/L 299 H Troponin I (<0.06) ng/mL NT-Pro-B Natriuret Pep (<300) pg/mL Total Protein (6.4-8.2) g/dL Albumin (3.4-5.0) g/dL TSH (0.36-3.74) uIU/mL Urine Color (Yellow) Urine Clarity (Clear) Urine pH (5-8) Ur Specific [place] (1.005-1.025) Urine Protein (Negative) mg/dL Urine Ketones (Negative) mg/dL Urine Blood (Negative) Urine Nitrite (Negative) Urine Bilirubin (Negative) Urine Urobilinogen (Up TO 0.2) EU/dL Ur Leukocyte Esterase (Negative) Urine RBC Urine WBC Ur Epithelial Cells Urine Crystals Urine Bacteria Urine Casts Urine Mucus Urine Other Ur Culture Indicated? Urine Glucose (Negative) mg/dL Urine Opiates Screen (Negative) Urine Methadone Screen (Negative) Acetaminophen (10-30) ug/mL Ur Barbiturates Screen (Negative) Ur Tricyclics Screen (Negative) Ur Amphetamines Screen (Negative) U Benzodiazepines Scrn (Negative) Urine Cocaine Screen (Negative) Ur THC Screen (Negative) Ethyl Alcohol (<3) mg/dL COVID-19 Source SARS-CoV-2 (PCR) (Negative) Influenza Type A (PCR) (Negative) Influenza Type B (PCR) (Negative) RSV (PCR) (Negative) Range/Units 03/23/21 03/23/21 03/23/21 10:08 10:08 12:31 WBC (4.4-10.8) 10^3/uL RBC (3.93-5.22) 10^6/uL Hgb (11.2-15.7) g/dL Hct (36.0-46.0) % MCV (80-95) fL MCH (27.0-33.0) pg MCHC (32.0-36.0) % RDW (11.7-14.6) % Plt Count (130-400) 10^3/uL MPV (8.0-11.0) fL Immature Gran % Neutrophils % Lymphocytes % Monocytes % Eosinophils % Basophils % Nucleated RBC % % Absolute Neutrophils (1.2-6.7) 10^3/uL Absolute Lymphocytes (1.2-3.4) 10^3/uL Absolute Monocytes (0.1-0.8) 10^3/uL Absolute Eosinophils (0.0-0.7) 10^3/uL Absolute Basophils (0.0-0.2) 10^3/uL RBC Morphology Anisocytosis PT (9.3-11.0) sec INR (0.9-1.1) VBG pH (7.31-7.41) VBG pCO2 (41-51) mmHg VBG pO2 mmHg VBG HCO3 (23-28) mmol/L VBG Total CO2 (24-29) mmol/L VBG O2 Saturation % VBG Base Excess (-2-3) mmol/L VBG Lactate (0.6-1.4) mmol/L Sodium (136-145) mmol/L Potassium (3.5-5.1) mmol/L Chloride (98-107) mmol/L Carbon Dioxide (21.0-32.0) mmol/L Anion Gap (3-11) mmol/L BUN (7-18) mg/dL Creatinine (0.55-1.02) mg/dL Estimated GFR/1.73 m2 (mL/min/1.73m2) Glucose (74-106) mg/dL Calcium (8.5-10.1) mg/dL Magnesium (1.8-2.4) mg/dL Total Bilirubin (0.2-1.0) mg/dL Conjugated Bilirubin (0.0-0.2) mg/dL AST (15-37) U/L ALT (14-59) U/L Alkaline Phosphatase (46-116) U/L Ammonia (11-32) umol/L Creatine Kinase (26-192) U/L Troponin I (<0.06) ng/mL Cancelled NT-Pro-B Natriuret Pep (<300) pg/mL 940 H Total Protein (6.4-8.2) g/dL Albumin (3.4-5.0) g/dL TSH (0.36-3.74) uIU/mL 0.10 L Urine Color (Yellow) Urine Clarity (Clear) Urine pH (5-8) Ur Specific [place] (1.005-1.025) Urine Protein (Negative) mg/dL Urine Ketones (Negative) mg/dL Urine Blood (Negative) Urine Nitrite (Negative) Urine Bilirubin (Negative) Urine Urobilinogen (Up TO 0.2) EU/dL Ur Leukocyte Esterase (Negative) Urine RBC Urine WBC Ur Epithelial Cells Urine Crystals Urine Bacteria Urine Casts Urine Mucus Urine Other Ur Culture Indicated? Urine Glucose (Negative) mg/dL Urine Opiates Screen (Negative) Urine Methadone Screen (Negative) Acetaminophen (10-30) ug/mL Ur Barbiturates Screen (Negative) Ur Tricyclics Screen (Negative) Ur Amphetamines Screen (Negative) U Benzodiazepines Scrn (Negative) Urine Cocaine Screen (Negative) Ur THC Screen (Negative) Ethyl Alcohol (<3) mg/dL < 3.0 COVID-19 Source SARS-CoV-2 (PCR) (Negative) Influenza Type A (PCR) (Negative) Influenza Type B (PCR) (Negative) RSV (PCR) (Negative) Range/Units 03/23/21 03/23/21 12:45 12:45 WBC (4.4-10.8) 10^3/uL RBC (3.93-5.22) 10^6/uL Hgb (11.2-15.7) g/dL Hct (36.0-46.0) % MCV (80-95) fL MCH (27.0-33.0) pg MCHC (32.0-36.0) % RDW (11.7-14.6) % Plt Count (130-400) 10^3/uL MPV (8.0-11.0) fL Immature Gran % Neutrophils % Lymphocytes % Monocytes % Eosinophils % Basophils % Nucleated RBC % % Absolute Neutrophils (1.2-6.7) 10^3/uL Absolute Lymphocytes (1.2-3.4) 10^3/uL Absolute Monocytes (0.1-0.8) 10^3/uL Absolute Eosinophils (0.0-0.7) 10^3/uL Absolute Basophils (0.0-0.2) 10^3/uL RBC Morphology Anisocytosis PT (9.3-11.0) sec INR (0.9-1.1) VBG pH (7.31-7.41) VBG pCO2 (41-51) mmHg VBG pO2 mmHg VBG HCO3 (23-28) mmol/L VBG Total CO2 (24-29) mmol/L VBG O2 Saturation % VBG Base Excess (-2-3) mmol/L VBG Lactate (0.6-1.4) mmol/L Sodium (136-145) mmol/L Potassium (3.5-5.1) mmol/L Chloride (98-107) mmol/L Carbon Dioxide (21.0-32.0) mmol/L Anion Gap (3-11) mmol/L BUN (7-18) mg/dL Creatinine (0.55-1.02) mg/dL Estimated GFR/1.73 m2 (mL/min/1.73m2) Glucose (74-106) mg/dL Calcium (8.5-10.1) mg/dL Magnesium (1.8-2.4) mg/dL Total Bilirubin (0.2-1.0) mg/dL Conjugated Bilirubin (0.0-0.2) mg/dL AST (15-37) U/L ALT (14-59) U/L Alkaline Phosphatase (46-116) U/L Ammonia (11-32) umol/L Creatine Kinase (26-192) U/L Troponin I (<0.06) ng/mL NT-Pro-B Natriuret Pep (<300) pg/mL Total Protein (6.4-8.2) g/dL Albumin (3.4-5.0) g/dL TSH (0.36-3.74) uIU/mL Urine Color (Yellow) Yellow Urine Clarity (Clear) Sl cloudy Urine pH (5-8) 5.5 Ur Specific [place] (1.005-1.025) >= 1.030 H Urine Protein (Negative) mg/dL >=300 H Urine Ketones (Negative) mg/dL 15 H Urine Blood (Negative) Large H Urine Nitrite (Negative) Negative Urine Bilirubin (Negative) Large H Urine Urobilinogen (Up TO 0.2) EU/dL 1.0 H Ur Leukocyte Esterase (Negative) Trace H Urine RBC Cancelled Urine WBC Cancelled Ur Epithelial Cells Cancelled Urine Crystals Cancelled Urine Bacteria Cancelled Urine Casts Cancelled Urine Mucus Cancelled Urine Other Cancelled Ur Culture Indicated? Cancelled Urine Glucose (Negative) mg/dL Negative Urine Opiates Screen (Negative) Negative Urine Methadone Screen (Negative) Negative Acetaminophen (10-30) ug/mL Ur Barbiturates Screen (Negative) Negative Ur Tricyclics Screen (Negative) Negative Ur Amphetamines Screen (Negative) Positive A U Benzodiazepines Scrn (Negative) Negative Urine Cocaine Screen (Negative) Negative Ur THC Screen (Negative) Negative Ethyl Alcohol (<3) mg/dL COVID-19 Source SARS-CoV-2 (PCR) (Negative) Influenza Type A (PCR) (Negative) Influenza Type B (PCR) (Negative) RSV (PCR) (Negative) ECG Data Attestation: I personally reviewed and interpreted this ECG (s) as follows: Interpretation: EKG shows sinus rhythm at 105, low voltage, normal axis, no STEMI, nondiagnostic EKG HPI General Mode of arrival: EMS. Date/Time Provider Initiated Documentation: 03/23/21 09:35. Limitations to Documentation: altered mental status. Information obtained by: family, EMS, RN notes reviewed and old records reviewed. HPI Narrative: Becca Bond is a 61-year-old woman with a history of HIV, alcoholism presenting to the emergency department with new jaundice, altered mental status. Patient's partner of 14 years (Sheldon) last saw patient at baseline yesterday. He reports that patient babbles and is somewhat confused at baseline so was much more so today. He also reports that she is not typically jaundiced. On exam patient is altered, not following commands, unable to provide a history. Review of systems negative as per patient's boyfriend, Sheldon. Care assumed from Concha Morales based on patient's critical illness. Related Data Home Medications Medication Instructions Recorded Confirmed Genvoya 1 tab PO HS 09/07/17 12/17/20 acetaminophen 500 mg capsule 500 mg PO Q6H PRN #30 cap 11/10/20 12/17/20 ibuprofen 800 mg tablet 800 mg PO TID #30 tab 11/10/20 12/17/20 gabapentin 300 mg capsule 300 mg PO QHS #3 cap 12/15/20 12/17/20 trazodone 200 mg PO HS 12/17/20 12/17/20 gabapentin 300 mg capsule 300 mg PO QHS #30 cap 12/19/20 12/19/20 metronidazole 500 mg tablet 500 mg PO TID #90 tab 12/19/20 12/19/20 sulfamethoxazole 800 1 tab PO BID #60 tab 12/19/20 12/19/20 mg-trimethoprim 160 mg tablet hydromorphone 2 mg tablet 2 mg PO ONCE PRN #3 tab MDD 2 mg 01/12/21 Previous Rx's Medication Instructions Recorded acetaminophen 500 mg capsule 500 mg PO Q6H PRN #30 cap 11/10/20 ibuprofen 800 mg tablet 800 mg PO TID #30 tab 11/10/20 gabapentin 300 mg capsule 300 mg PO QHS #3 cap 12/15/20 gabapentin 300 mg capsule 300 mg PO QHS #30 cap 12/19/20 metronidazole 500 mg tablet 500 mg PO TID #90 tab 12/19/20 sulfamethoxazole 800 1 tab PO BID #60 tab 12/19/20 mg-trimethoprim 160 mg tablet hydromorphone 2 mg tablet 2 mg PO ONCE PRN #3 tab MDD 2 mg 01/12/21 Allergies Allergy/AdvReac Type Severity Reaction Status Date / Time efavirenz [From Sustiva] Allergy Intermediate Hives Verified 01/16/21 11:31 Antihistamines - Alkylamine AdvReac Intermediate Cardiac Verified 01/16/21 11:31 Dysrythmia codeine AdvReac Intermediate Nausea Verified 01/16/21 11:31 Sulfa (Sulfonamide AdvReac Intermediate Hives Verified 01/16/21 11:31 Antibiotics) adhesive tape AdvReac Mild Skin Rash Verified 01/16/21 11:31 seafood Allergy Severe Other (See Uncoded 01/16/21 11:31 Comment) General Stated Complaint: AMS/LOC BARB: 2 Review of Systems Narrative: Review of systems negative per patient's boyfriend Unobtainable due to mental status [facility] Medical History HIV positive Hx of breast cancer 2007 Tobacco abuse Surgical History Fracture, Open Treatment (09/09/17) RIGHT ANKLE/DR. QURESHI Hx of appendectomy Hx of left mastectomy Hx of right knee surgery Social History Smoking/Tobacco Use Status: Former Tobacco Use Smoking risk assessment performed?: Yes Alcohol Intake: current Alcohol Intake frequency: a few times a week Alcohol type: hard liquor Drug use: Never Substance use type: marijuana Current gender identity: female Do you feel safe at home: Yes Do you feel safe in your relationship?: Yes Exam Narrative Exam Narrative: Constitutional: Alert, arouses easily to voice, does not follow commands, speaks in one-word sentences no, stop etc. HENT: head atraumatic/normocephalic/normal inspection, mucous membranes dry Eyes: conjunctiva normal, sclera jaundiced, pupils 3mm b/l ERRLA Neck: no stridor, normal ROM, trachea midline Chest: normal inspection Resp: normal work of breathing, mild expiratory wheeze bilaterally throughout Cardio: Tachycardic rate, normal rhythm, no murmur appreciated GI: abdomen soft, non-tender, non-distended Back: normal inspection, no rash Skin: warm, dry, jaundiced, no rash Neuro: alert, not altered, grossly non-focal, normal tone Ext: no edema, chronic wound distal right lower extremity with dirty dressings initially in place and then removed Course Vital Signs Vital signs: Vital Signs Temperature 36.5 C 03/23/21 09:24 Pulse 107 H 03/23/21 09:24 Respiratory Rate 22 03/23/21 09:24 Blood Pressure 83/42 L 03/23/21 09:24 Pulse Oximetry 95 03/23/21 09:24 Temperature 36.5 C 03/23/21 09:24 Pulse 107 H 03/23/21 09:24 Respiratory Rate 22 03/23/21 09:24 Blood Pressure 83/42 L 03/23/21 09:24 Blood Pressure Position Supine 03/23/21 09:24 Pulse Oximetry 95 03/23/21 09:24 Oxygen Delivery Method Nasal Cannula 03/23/21 09:24 Oxygen Flow Rate 4 03/23/21 09:24 Lab/Test Results Lab/Test Results: 03/23/21 10:08 Blood Blood Culture - Pending 03/23/21 09:50 Blood Blood Culture - Pending Laboratory Tests Range/Units 03/23/21 03/23/21 03/23/21 09:35 09:35 09:35 WBC (4.4-10.8) 10^3/uL 6.58 RBC (3.93-5.22) 10^6/uL 3.35 L Hgb (11.2-15.7) g/dL 10.7 L Hct (36.0-46.0) % 33.7 L MCV (80-95) fL 100.6 H MCH (27.0-33.0) pg 31.9 MCHC (32.0-36.0) % 31.8 L RDW (11.7-14.6) % 20.6 H Plt Count (130-400) 10^3/uL 167 MPV (8.0-11.0) fL 9.9 Immature Gran % 0.5 Neutrophils % 86.2 Lymphocytes % 5.6 Monocytes % 7.3 Eosinophils % 0.2 Basophils % 0.2 Nucleated RBC % % 0 Absolute Neutrophils (1.2-6.7) 10^3/uL 5.68 Absolute Lymphocytes (1.2-3.4) 10^3/uL 0.37 L Absolute Monocytes (0.1-0.8) 10^3/uL 0.48 Absolute Eosinophils (0.0-0.7) 10^3/uL 0.01 Absolute Basophils (0.0-0.2) 10^3/uL 0.01 RBC Morphology See below Anisocytosis 2+ PT (9.3-11.0) sec INR (0.9-1.1) VBG pH (7.31-7.41) VBG pCO2 (41-51) mmHg VBG pO2 mmHg VBG HCO3 (23-28) mmol/L VBG Total CO2 (24-29) mmol/L VBG O2 Saturation % VBG Base Excess (-2-3) mmol/L VBG Lactate (0.6-1.4) mmol/L Sodium (136-145) mmol/L 143 Potassium (3.5-5.1) mmol/L 5.0 Chloride (98-107) mmol/L 104 Carbon Dioxide (21.0-32.0) mmol/L 24.0 Anion Gap (3-11) mmol/L 15.0 H BUN (7-18) mg/dL 52 H Creatinine (0.55-1.02) mg/dL 6.5 H* Estimated GFR/1.73 m2 (mL/min/1.73m2) 6.46 Glucose (74-106) mg/dL 44 L* Calcium (8.5-10.1) mg/dL 8.9 Magnesium (1.8-2.4) mg/dL 2.4 Total Bilirubin (0.2-1.0) mg/dL 9.4 H Alkaline Phosphatase (46-116) U/L 201 H Ammonia (11-32) umol/L 27 Troponin I (<0.06) ng/mL 0.23 H* Total Protein (6.4-8.2) g/dL 7.0 Albumin (3.4-5.0) g/dL 2.6 L COVID-19 Source Range/Units 03/23/21 03/23/21 03/23/21 09:35 09:47 10:08 WBC (4.4-10.8) 10^3/uL RBC (3.93-5.22) 10^6/uL Hgb (11.2-15.7) g/dL Hct (36.0-46.0) % MCV (80-95) fL MCH (27.0-33.0) pg MCHC (32.0-36.0) % RDW (11.7-14.6) % Plt Count (130-400) 10^3/uL MPV (8.0-11.0) fL Immature Gran % Neutrophils % Lymphocytes % Monocytes % Eosinophils % Basophils % Nucleated RBC % % Absolute Neutrophils (1.2-6.7) 10^3/uL Absolute Lymphocytes (1.2-3.4) 10^3/uL Absolute Monocytes (0.1-0.8) 10^3/uL Absolute Eosinophils (0.0-0.7) 10^3/uL Absolute Basophils (0.0-0.2) 10^3/uL RBC Morphology Anisocytosis PT (9.3-11.0) sec 38.6 H INR (0.9-1.1) 4.0 H VBG pH (7.31-7.41) VBG pCO2 (41-51) mmHg VBG pO2 mmHg VBG HCO3 (23-28) mmol/L VBG Total CO2 (24-29) mmol/L VBG O2 Saturation % VBG Base Excess (-2-3) mmol/L VBG Lactate (0.6-1.4) mmol/L 4.0 H* Sodium (136-145) mmol/L Potassium (3.5-5.1) mmol/L Chloride (98-107) mmol/L Carbon Dioxide (21.0-32.0) mmol/L Anion Gap (3-11) mmol/L BUN (7-18) mg/dL Creatinine (0.55-1.02) mg/dL Estimated GFR/1.73 m2 (mL/min/1.73m2) Glucose (74-106) mg/dL Calcium (8.5-10.1) mg/dL Magnesium (1.8-2.4) mg/dL Total Bilirubin (0.2-1.0) mg/dL Alkaline Phosphatase (46-116) U/L Ammonia (11-32) umol/L Troponin I (<0.06) ng/mL Total Protein (6.4-8.2) g/dL Albumin (3.4-5.0) g/dL COVID-19 Source Nasal/nares Range/Units 03/23/21 10:08 WBC (4.4-10.8) 10^3/uL RBC (3.93-5.22) 10^6/uL Hgb (11.2-15.7) g/dL Hct (36.0-46.0) % MCV (80-95) fL MCH (27.0-33.0) pg MCHC (32.0-36.0) % RDW (11.7-14.6) % Plt Count (130-400) 10^3/uL MPV (8.0-11.0) fL Immature Gran % Neutrophils % Lymphocytes % Monocytes % Eosinophils % Basophils % Nucleated RBC % % Absolute Neutrophils (1.2-6.7) 10^3/uL Absolute Lymphocytes (1.2-3.4) 10^3/uL Absolute Monocytes (0.1-0.8) 10^3/uL Absolute Eosinophils (0.0-0.7) 10^3/uL Absolute Basophils (0.0-0.2) 10^3/uL RBC Morphology Anisocytosis PT (9.3-11.0) sec INR (0.9-1.1) VBG pH (7.31-7.41) 7.39 VBG pCO2 (41-51) mmHg 41 VBG pO2 mmHg 35 VBG HCO3 (23-28) mmol/L 25 VBG Total CO2 (24-29) mmol/L 23 L VBG O2 Saturation % 59 VBG Base Excess (-2-3) mmol/L 0 VBG Lactate (0.6-1.4) mmol/L Sodium (136-145) mmol/L Potassium (3.5-5.1) mmol/L Chloride (98-107) mmol/L Carbon Dioxide (21.0-32.0) mmol/L Anion Gap (3-11) mmol/L BUN (7-18) mg/dL Creatinine (0.55-1.02) mg/dL Estimated GFR/1.73 m2 (mL/min/1.73m2) Glucose (74-106) mg/dL Calcium (8.5-10.1) mg/dL Magnesium (1.8-2.4) mg/dL Total Bilirubin (0.2-1.0) mg/dL Alkaline Phosphatase (46-116) U/L Ammonia (11-32) umol/L Troponin I (<0.06) ng/mL Total Protein (6.4-8.2) g/dL Albumin (3.4-5.0) g/dL COVID-19 Source Critical Care Time Critical Care Time Critical Care Time: Yes Total Critical Care Time: 90 Attestation: I have spent 90 minutes of critical care time critically ill patient, including frequent bedside reassessments, discussion with consultants and family, and interpretation of labs.
[2021-03-23] MEDS: CEFEPIME 1 GM in Normal Saline 50 ML IVPB (10:27)
[2021-03-23 10:33] LABS: AST 2844 U/L (15-37); Bilirubin, Direct 7.9 mg/dL (0.0-0.2)
[2021-03-23 10:34] LABS: ALT 1330 U/L (14-59)
[2021-03-23 10:40] LABS: COVID-19 PCR Negative (Negative); Influenza A PCR Negative (Negative); Influenza B PCR Negative (Negative); RSV PCR Negative (Negative)
[2021-03-23 10:41] LABS: Creatine Kinase 299 U/L (26-192)
[2021-03-23] MEDS: Albuterol/Ipratropium 3 ML UPD VIAL UPD ×2 (10:41→13:11)
[2021-03-23 10:49] LABS: NT-proBNP 940 pg/mL (<300)
[2021-03-23] MEDS: VANCOMYCIN/WATER (PEG) 1.5 GM/300 ML BAG IVPB (10:51)
[2021-03-23 10:55] LABS: ETHANOL BLOOD < 3.0 mg/dL (<3)
[2021-03-23 12:48] LABS: Acetaminophen 3 ug/mL (10-30)
[2021-03-23 12:55] LABS: Bilirubin Large (Negative); Blood Large (Negative); Clarity Sl Cloudy (Clear); Glucose Negative (Negative); Ketones 15 mg/dL (Negative); Leukocyte Esterase Trace (Negative); Nitrite Negative (Negative); Specific Gravity >= 1.030 (1.005-1.025); pH 5.5 (5-8)
[2021-03-23] MEDS: LORazepam 2 MG/ML VIAL 1 MG IVP (12:55)
[2021-03-23] MEDS: Albuterol/Ipratropium 3 ML UPD VIAL (13:07)
[2021-03-23 13:18] LABS: *AMPHETAMINES SCREEN URINE Positive (Negative); *BARBITURATES SCREEN URINE Negative (Negative); *BENZODIAZEPINES SCREEN URINE Negative (Negative); Cannabinoids THC Negative (Negative); Cocaine Screen,Urine Negative (Negative); METHADONE URINE SCREEN Negative (Negative); OPIATES URINE SCREEN Negative (Negative)
[2021-03-23 13:20] LABS: Tricyclic Antidepressants Negative (Negative)
[2021-03-23] MEDS: VASOPRESSIN 50 UNITS in Normal Saline 497.5 ML 12 UNITS IV (13:37)
== END 2021-03-23 14:50 ==
PROVIDERS: Physician Assistant; Emergency Provider Student in an Organized Health Care Education/Training Program; PCP Nurse Practitioner
DX: G93.49 Other encephalopathy (principal); N17.9 Acute kidney failure, unspecified; R17 Unspecified jaundice; R74.01 Elevation of levels of liver transaminase levels; E80.7 Disorder of bilirubin metabolism, unspecified; R05 Cough; Z78.1 Physical restraint status
CPT/HCPCS: 36410; 36415; 36416; 80053; 80076; 80307; 82550; 82805; 82962; 87040; 87637; 93005; 94640; 96361; 96365; 96366; 96367; 96375; 99291; 99292; 70450; 71045; 80320; 80329; 81003; 81015; 82140; 83605; 83735; 83880; 84443; 84484; 85025; 85610; 93010; J2060; J7620